=== PATIENT | female | born 1980 ===

== ENCOUNTER 2019-08-18 11:28 | Emergency (ER) | payer OTHER ==
[~2019-08-18] VITALS: Ht 167.6 cm; Wt 81.6 kg
[2019-08-18] MEDS ORDERED: PROTONIX40 M1 (12:12)
[2019-08-18] MEDS ORDERED: IMURAN50 MG (12:12)
== END 2019-08-18 16:46 | disposition home or self-care (01) ==
LOC: ER 11:28 → EDBD 11:38 → ER 16:46
DX: J11.1 Influenza due to unidentified influenza virus with other respiratory manifestations (principal)